=== PATIENT | female | born 1950 | race American Indian/Alaskan Native ===

== ENCOUNTER 2017-08-23 07:26 | Outpatient (CLI) | payer MEDICARE, OTHER ==
--- NOTE | 2017-08-24 15:33 | Mammography Report ---
BILATERAL DIGITAL SCREENING MAMMOGRAM with CAD : 08/23/17 07:26:00 CLINICAL: Routine screening. COMPARISON:07/03/16 FINDINGS: The breasts are heterogeneously dense, which may obscure small masses. No mass, architectural distortion or suspicious calcifications. IMPRESSION: No mammographic evidence of malignancy. BI-RADS CATEGORY: 2 -- Benign RECOMMENDATION: Routine mammographic screening in one year. COMMENT: Patient follow-up letters are generated by our [employer] application.
== END 2017-08-23 07:27 | disposition home or self-care (01) ==
LOC: MAMMO 07:26
PROVIDERS: ATTEND Internal Medicine
DX: Z12.31 Encounter for screening mammogram for malignant neoplasm of breast (principal)
CPT/HCPCS: 77067; G0202

== ENCOUNTER 2018-11-22 07:32 | Outpatient (CLI) | payer MEDICARE, OTHER ==
--- NOTE | 2018-11-22 10:08 | Mammography Report ---
BILATERAL DIGITAL SCREENING MAMMOGRAM with CAD: 11/22/18 07:32:00 CLINICAL: Routine screening. COMPARISON:08/23/17 and 07/03/16 and 06/05/14 FINDINGS: The breasts are heterogeneously dense, which may obscure small masses.Stable partially circumscribed right retroareolar mass which is best seen on the CC view. No new mass, architectural distortion or suspicious calcifications. IMPRESSION: No mammographic evidence of malignancy. BI-RADS CATEGORY: 2 - - Benign RECOMMENDATION: Routine mammographic screening in one year. COMMENT: Patient follow-up letters are generated by our [employer] application.
== END 2018-11-22 07:33 | disposition home or self-care (01) ==
LOC: MAMMO 07:32
PROVIDERS: ATTEND Internal Medicine
DX: Z12.31 Encounter for screening mammogram for malignant neoplasm of breast (principal)
CPT/HCPCS: 77067

== ENCOUNTER 2020-05-27 07:52 | Outpatient (CLI) | payer MEDICARE, OTHER ==
--- NOTE | 2020-05-27 15:26 | Mammography Report ---
DIGITAL SCREENING MAMMOGRAM WITH CAD, 05/27/2020 INDICATION: Routine screening mammography. TECHNIQUE: Digital bilateral 2D mammography was obtained in the craniocaudal and mediolateral obliq ue projections. This examination was interpreted with the benefit of Computer-Aided Detection analysi s. COMPARISON: 11/22/2018, 08/23/2017, 07/03/2016 FINDINGS: Breast Density: The breasts are heterogeneously dense, which may obscure small masses. There is no evidence of dominant mass, suspicious calcifications or architectural distortion in eithe r breast. IMPRESSION: Follow up recommendation: Routine yearly BI-RADS Category 1: Negative. A "normal" or negative report should not discourage follow up or biopsy of a clinically significant f inding. A written summary of these findings will be mailed to the patient. The patient will be entered into a mammography reporting system which will generate a reminder letter for the patient's next appointmen t at the appropriate interval. The [employer] recommends yearly mammograms starting at age 40 and continuing as l robin as a woman is in good health. Breast MRI is recommended for women with an approximate 20-25% or greater lifetime risk of breast cancer, including women with a strong family history of breast or ova joshua cancer or who have been treated for Hodgkin's disease. Signer Name: Fariba Reed MD Signed: 05/27/2020 3:22 PM Workstation Name: [id number]
== END 2020-05-27 07:53 | disposition home or self-care (01) ==
LOC: MAMMO 07:52
PROVIDERS: ATTEND Internal Medicine
DX: Z12.31 Encounter for screening mammogram for malignant neoplasm of breast (principal)
CPT/HCPCS: 77067

== ENCOUNTER 2021-06-07 09:51 | Outpatient (CLI) | payer MEDICARE, OTHER ==
--- NOTE | 2021-06-08 12:55 | Mammography Report ---
DIGITAL SCREENING MAMMOGRAM WITH CAD, 06/08/2021 CLINICAL INFORMATION / INDICATION: Routine screening mammography. SCREENING MAMMOGRAM TECHNIQUE: Digital bilateral 2D mammography was obtained in the craniocaudal and mediolateral obliqu e projections. This examination was interpreted with the benefit of Computer-Aided Detection analysis . COMPARISON: 06/05/2014 through 05/27/2020. FINDINGS: Breast Density: The breasts are heterogeneously dense, which may obscure small masses. No dominant mass, suspicious calcifications, or architectural distortion in either breast. IMPRESSION: No mammographic evidence of malignancy. Follow up recommendation: Routine yearly BI-RADS Category 1: Negative. A "normal" or negative report should not discourage follow up or biopsy of a clinically significant f inding. A written summary of these findings will be mailed to the patient. The patient will be entered into a mammography reporting system which will generate a reminder letter for the patient's next appointmen t at the appropriate interval. The [employer] recommends yearly mammograms starting at age 40 and continuing as l robin as a woman is in good health. Breast MRI is recommended for women with an approximate 20-25% or greater lifetime risk of breast cancer, including women with a strong family history of breast or ova joshua cancer or who have been treated for Hodgkin's disease. Signer Name: Dario Velasco MD Signed: 06/08/2021 12:51 PM Workstation Name: [id number]
== END 2021-06-07 09:52 | disposition home or self-care (01) ==
LOC: MAMMO 09:51
PROVIDERS: ATTEND Internal Medicine
DX: Z12.31 Encounter for screening mammogram for malignant neoplasm of breast (principal)
CPT/HCPCS: 77067

== ENCOUNTER 2022-03-06 12:45 | Outpatient (CLI) | payer MEDICARE, OTHER ==
[2022-03-06 14:14] LABS: Alanine Aminotransferase 18 units/L (7-56); Albumin 4.9 g/dL (3.9-5); BUN/Creatinine Ratio 13; Blood Urea Nitrogen 13 mg/dL (7-17); Calcium 9.8 mg/dL (8.4-10.2); Hemolysis Index 3
[2022-03-06 14:16] LABS: Erythrocyte Sedimentation Rate 6 mm/Hr (0-20); Hematocrit 43.4 % (30.3-42.9); Hemoglobin 14.5 gm/dl (10.1-14.3); Mean Corpuscular HGB Conc 34 % (30-34); Mean Corpuscular Volume 91 fl (79-97); Platelet Count 184 K/mm3 (140-440); Red Blood Count 4.77 M/mm3 (3.65-5.03); Red Cell Distribution Width 14.7 % (13.2-15.2)
[2022-03-09 12:18] LABS: Vitamin D, 25-OH, D2 <4 ng/mL
[2022-03-10 13:38] LABS: ANA Screen, IFA Negative (Negative)
== END 2022-03-06 12:46 | disposition home or self-care (01) ==
LOC: LAB 12:45
PROVIDERS: ATTEND Specialist
DX: G93.40 Encephalopathy, unspecified (principal); G70.9 Myoneural disorder, unspecified; A53.9 Syphilis, unspecified; E07.9 Disorder of thyroid, unspecified
CPT/HCPCS: 36415; 80053; 82306; 82607; 83519; 83921; 84443; 85027; 85652; 86038; 86225; 86256; 86592